=== PATIENT | male | born 1975 | race Caucasian/White ===

== ENCOUNTER 2024-08-05 12:04 | Emergency (ER) | payer OTHER ==
[~2024-08-05] VITALS: Ht 175.3 cm; Wt 102.2 kg
[2024-08-05 12:39] VITALS: PULSE 101; RESP 20; O2SAT 93
--- NOTE | 2024-08-05 12:44 | ED.PDOC ---
SOB-HPI HPI Comments 48 y.o male presents to the ED for a chief complaint of SOB associated with left sided chest pain and chills that started 2 days ago. Patient describes pain as a dull sensation that is constant, worse on ambulation but does decrease slightly at rest. Patient at this time rates pain a 4/10 on the pain scale. Patient denies any nausea, vomiting, diarrhea, fever, leg swelling, pain or cramping. Patient was seen at [facility] [place] [facility] for complaint and was sent to the ED to rule out PE. He denies tobacco or substance use as well as medical history. Chief Complaint: Shortness of Breath Time Seen by MD: 12:31 Primary Care Provider: DOMINGUEZ Reviewed notes: Nurses Notes, Medications, Allergies Information Source: Patient Mode of Arrival: Ambulatory Severity: Moderate Timing: Days (2) Duration: Since onset Context: At Rest PE Risk Factors: None History of: None Modifying Factors: Rest; Exertion, Inhaler Associated Signs and Symptoms: Chest Pain Quality: Other (dull) Radiation: No Radiation Location: Chest (L) Past Medical History PAST MEDICAL HISTORY: Denies Surgical History (Other): left hand Family History Family History: Family hx of DM Social History Smoker: Non-Smoker Alcohol: Occasionally Drugs: Denies Drug Use Lives In: Home Constitutional: denies: chills, diaphoresis, fatigue, fever, malaise, sweats, weakness, others EENTM: denies: blurred vision, double vision, ear bleeding, ear discharge, ear drainage, ear pain, ear ringing, eye pain, eye redness, hearing loss, mouth pain, mouth swelling, nasal discharge, nose bleeding, nose congestion, nose pain, photophobia, tearing, throat pain, throat swelling, voice changes, others Respiratory: reports: SOB at rest, shortness of breath, SOB with excertion; denies: cough, hemoptysis, orthopnea, stridor, wheezing, others Cardiovascular: reports: chest pain; denies: dizzy spells, diaphoresis, Dyspnea on exertion, edema, irregular heart beat, left arm pain, lightheadedness, palpitations, PND, syncope, others Gastrointestinal: denies: abdomen distended, abdominal pain, blood streaked bowels, constipated, diarrhea, dysphagia, difficulty swallowing, hematemesis, melena, nausea, poor appetite, poor fluid intake, rectal bleeding, rectal pain, vomiting, others Genitourinary: denies: burning, dysuria, flank pain, frequency, hematuria, incontinence, penile discharge, penile sore, pain, testicle pain, testicle swelling, urgency, others Neurological: denies: dizziness, fainting, headache, left sided numbness, left sided weakness, numbness, paresthesia, pre-existing deficit, right sided numbness, right sided weakness, seizure, speech problems, tingling, tremors, weakness, others Musculoskeletal: denies: back pain, gout, joint pain, joint swelling, muscle pain, muscle stiffness, neck pain, others Integumetry: denies: bruises, change in color, change in hair/nails, dryness, laceration, lesions, lumps, rash, wounds, others Allergic/Immunocompromised: denies: Difficulty Healing, Frequent Infections, Hives, Itching, others Hematologic/Lymphatic: denies: anemia, blood clots, easy bleeding, easy bruising, swollen glands, others Endocrine: denies: excessive hunger, excessive sweating, excessive thirst, excessive urination, flushing, intolerance to cold, intolerance to heat, unexplained weight gain, unexplained weight loss, others Psychiatric: denies: anxiety, bipolar disorder, depression, hopeless, panic disorder, schizophrenia, sleepless, suicidal, others All Other Systems: Reviewed and Negative Physical Exam General Appearance: No Apparent Distress HEENT: Normal ENT Inspection, Pharynx Normal, TMs Normal Neck: Full Range of Motion, Non-Tender, Normal, Normal Inspection Respiratory: Chest Non-Tender, Lungs Clear, No Accessory Muscle Use, No Respiratory Distress, Normal Breath Sounds Cardiovascular: No Edema, No JVD, No Murmur, No Gallop, Normal Peripheral Pulses, Regular Rate/Rhythm Breast Exam: Deferred Gastrointestinal: No Organomegaly, Non Tender, No Pulsatile Mass, Normal Bowel Sounds, Soft Genitalia: Deferred Pelvic: Deferred Rectal: Deferred Extremities: No calf tenderness, Normal capillary refill, Normal inspection, Normal range of motion, Non-tender, No pedal edema Musculoskeletal : Apperance: Normal Neurologic: Alert, manager vehicle II-XII nml as Tested, No Motor Deficits, Normal Affect, Normal Mood, No Sensory Deficits Cerebellar Function: Normal Reflexes: Normal Skin: Dry, Normal Color, Warm Lymphatic: No Adenopathy EKG EKG : Pulse Rate (adult): 105 Cardiac Rhythm: ST Was a procedure done? Was a procedure done?: No Differential Dx Differential Diagnosis: Pneumonia, Pulmonary Embolism, Respiratory Distress, URI X-Ray, Labs, Meds, VS Vital Signs Date Time Temp Pulse Resp B/P (MAP) Pulse Ox O2 Delivery O2 Flow Rate FiO2 08/05/24 17:28 96 18 99 Room Air 08/05/24 17:28 99.0 96 18 123/64 (83) 99 99.0 08/05/24 12:44 105 08/05/24 12:39 101 20 93 Room Air* 0 21 08/05/24 12:19 105 08/05/24 12:17 99.2 113 24 141/84 (103) 97 Lab Test 08/05/24 14:10 08/05/24 13:11 Range/Units Troponin I High Sensitivity < 3 L < 3 L </=54 ng/L White Blood Count 12.8 H 4.4-10.8 10^3/uL Red Blood Count 5.41 4.5-5.90 10^6/uL Hemoglobin 15.3 13.5-17.5 g/dL Hematocrit 44.1 41.0-53.0 % Mean Corpuscular Volume 81.4 80.0-100.0 fL Mean Corpuscular Hemoglobin 28.3 28.0-32.0 pg Mean Corpuscular Hemoglobin Concent 34.8 32.0-36.0 g/dL Red Cell Distribution Width 13.6 11.8-14.3 % Platelet Count 303 140-450 10^3/uL Mean Platelet Volume 7.2 6.9-10.8 fL Neutrophils (%) (Auto) 77.6 37.0-80.0 % Lymphocytes (%) (Auto) 7.8 L 10.0-50.0 % Monocytes (%) (Auto) 10.1 0.0-12.0 % Eosinophils (%) (Auto) 4.0 0.0-7.0 % Basophils (%) (Auto) 0.5 0.0-2.0 % Neutrophils # (Auto) 9.9 H 1.6-8.6 10 ^3/uL Lymphocytes # (Auto) 1.0 0.4-5.4 10 ^3/uL Monocytes # (Auto) 1.3 0-1.3 10 ^3/uL Eosinophils # (Auto) 0.5 0-0.8 10 ^3/uL Basophils # (Auto) 0.1 0-0.2 10 ^3/uL Nucleated Red Blood Cells 0.0 % D-Dimer, Quantitative 0.68 H 0.0-0.49 mg/L FEU Sodium Level 138 136-145 mmol/L Potassium Level 4.3 3.5-5.1 mmol/L Chloride Level 105 98-107 mmol/L Carbon Dioxide Level 24 20-31 mmol/L Anion Gap 9 5-15 Blood Urea Nitrogen 14 9-23 mg/dL Creatinine 0.94 0.700-1.30 mg/dL Glomerular Filtration Rate Calc 101 >90 mL/min BUN/Creatinine Ratio 14.9 10.0-20.0 Serum Glucose 112 H 74-106 mg/dL Calcium Level 9.6 8.7-10.4 mg/dL B-Type Natriuretic Peptide 13.58 0-100 pg/mL CTA CHEST IMPRESSION: 1. There is no evidence of a pulmonary arterial filling defect to suggest pulmonary embolism. 2. Nonspecific large 6.2 x 7.1 cm irregular enhancing mass in the left anterior mediastinum. This may represent malignancy such as a thymoma versus large matted collection of pathologic lymph nodes. We discussed the findings with the patient and let him know that this is a possibility of a malignancy. The patient's CBC shows an elevated white blood cell count of 12.8 The rest of the CBC is within normal limits The D-dimer is 0.68 The troponin level x2 is negative We did contact [facility] to let them know about this patient. They are going to set him up with an appointment immediately The patient is authorization number for [facility] is [id number] Images Reviewed?: Images reviewed and evaluated by me Time of 1ST Reevaluation: 12:44 Reevaluation 1ST: Unchanged Patient Education/Counseling: Diagnosis, Treatment, Prognosis Family Education/Counseling: No Family Present Departure 1 Departure Time of Disposition: 18:04 Impression: Primary Impression: Shortness of breath Additional Impression: Mediastinal mass Disposition: 01 HOME / SELF CARE / HOMELESS Condition: Fair Discharged With: Self Critical Care Note Critical Care Time?: No Stability Stability form required: No Heart Score Heart Score: Heart Score Response (Comments) Value History Slightly Suspicious 0 EKG Normal 0 Age 45-64 1 Risk Factors No known risk factors 0 Troponin Normal limit 0 Total 1 I personally scribed for ESTRELLA ALTMAN MD ([email or web address]) on 08/05/24 at 12:44. Electronically submitted by Nathalie Faulkner ([facility]). I personally scribed for ESTRELLA ALTMAN MD ([email or web address]) on 08/05/24 at 15:53. Electronically submitted by Nathalie Faulkner ([facility]). ESTRELLA ALTMAN MD Aug 05, 2024 12:44
[2024-08-05 13:32] LABS: Basophils # (auto) 0.1 10 ^3/uL (0-0.2); Basophils % (auto) 0.5 % (0.0-2.0); Eosinophils # (auto) 0.5 10 ^3/uL (0-0.8); Hematocrit 44.1 % (41.0-53.0); Hemoglobin 15.3 g/dL (13.5-17.5); Lymphocytes % (auto) 7.8 % (10.0-50.0); Mean Corpuscular Hemoglobin 28.3 pg (28.0-32.0); Mean Corpuscular Hgb Conc. 34.8 g/dL (32.0-36.0); Mean Corpuscular Volume 81.4 fL (80.0-100.0); Monocytes # (auto) 1.3 10 ^3/uL (0-1.3); Monocytes % (auto) 10.1 % (0.0-12.0); Neutrophils # (auto) 9.9 10 ^3/uL (1.6-8.6); Neutrophils % (auto) 77.6 % (37.0-80.0); Platelet Count (auto) 303 10^3/uL (140-450); Red Blood Cells 5.41 10^6/uL (4.5-5.90); Red Cell Distribution Width 13.6 % (11.8-14.3); White Blood Cell 12.8 10^3/uL (4.4-10.8)
[2024-08-05 13:46] LABS: Chloride 105 mmol/L (98-107); Potassium 4.3 mmol/L (3.5-5.1); Sodium 138 mmol/L (136-145)
[2024-08-05 13:47] LABS: Anion Gap 9 (5-15); Calcium 9.6 mg/dL (8.7-10.4); Carbon Dioxide 24 mmol/L (20-31)
[2024-08-05 13:52] LABS: BUN/Creatinine Ratio 14.9 (10.0-20.0); Blood Urea Nitrogen 14 mg/dL (9-23)
[2024-08-05 13:54] LABS: Glucose 112 mg/dL (74-106)
[2024-08-05] MEDS: IOHEXOL 350 MG/ML 100ML IJ ONE (14:22)
--- NOTE | 2024-08-05 15:14 | DVH ---
CTA CHEST INDICATION: sob/cp TECHNIQUE: Multidetector CTA of the chest was performed of the chest with 100 cc of intravenous contr ast. PULMONARY ANGIOGRAPHY PROTOCOL was utilized using a bolus-tracking technique centered on the eddi n pulmonary artery. Axial, coronal and sagittal multiplanar and MIP reformats were performed. Radiation Dose Information: CT Dose: CTDI volume is 24 mGy. Dose-length product is 927 mGy*cm The dose indicators for CT are the volume Computed Tomography (CT) Dose Index (CTDIvol) and the Dose Length Product (DLP), and are measured in units of mGy and mGy-cm, respectively. These indicators are not patient dose, but values generated from the CT scanner acquisition factors. The report includes radiation exposure data for exposures received during this examination. Comparison: None Findings: Pulmonary artery: There is no evidence of a pulmonary arterial filling defect to suggest pulmonary e mbolism. The main pulmonary artery demonstrates normal caliber. Lungs/Pleura: There is an approximately 6.2 x 7.1 cm irregular enhancing mass in the left anterior me diastinum. No focal consolidation or suspicious pulmonary nodule. There is no pleural effusion or pne umothorax. Heart/Vascular Structures: Normal heart size. The thoracic aorta demonstrates normal caliber. There is no evidence of pericardial effusion. Lymph Nodes: There is no hilar or axillary lymphadenopathy. Musculoskeletal: No acute osseous abnormality. Upper abdomen: Fatty infiltration of the liver. Remaining visualized upper abdominal structures appe ar within normal limits. IMPRESSION: 1. There is no evidence of a pulmonary arterial filling defect to suggest pulmonary embolism. 2. Nonspecific large 6.2 x 7.1 cm irregular enhancing mass in the left anterior mediastinum. This may represent malignancy such as a thymoma versus large matted collection of pathologic lymph nodes. HS:Y
[2024-08-05 17:28] VITALS: BP 123/64; PULSE 96; RESP 18; TEMP 99; O2SAT 99
--- NOTE | 2024-08-06 08:29 | ECG ---
[facility] Test Date: 2024-08-05 Test Time: 12:19:44 Pat Name: OBIE QUINTANILLA Department: ER Room: Gender: M Urologic Surgeon: RANCHO : 1975 Requested By: ESTRELLA ALTMAN Order Number: [id number] Reading MD: Measurements Intervals [place] Rate: 105 P: 78 OR: 160 QRS: 136 QRSD: 93 T: 25 QT: 322 QTc: 426 Interpretive Statements Sinus tachycardia RSR' in V1 or V2, probably normal variant Probable inferior infarct, old Lateral leads are also involved Please click the below link to view image of tracing.
== END 2024-08-05 18:45 | disposition home or self-care (01) ==
LOC: ER 12:04
DX: R06.02 Shortness of breath (principal); R22.2 Localized swelling, mass and lump, trunk; R07.89 Other chest pain; R68.83 Chills (without fever)
CPT/HCPCS: 36415; 71275; 80048; 83880; 84484; 85025; 85379; 93005; 99285; Q9967